=== PATIENT | male | born 1990 | race Caucasian/White ===

== ENCOUNTER 2017-04-15 17:09 | Emergency (ER) | payer OTHER ==
[~2017-04-15] VITALS: Ht 185.4 cm; Wt 71.5 kg
[~2017-04-15 17:09] MED LIST: FLEXERIL10 MG PO; METHADONE10 MG PO; MOTRIN800 MG PO; NAPROSYN500 MG PO
[2017-04-15] MEDS ORDERED: KEFLEX500 MG PO (18:53)
[2017-04-15 19:35] VITALS: BP 124/71
== END 2017-04-15 19:36 | disposition home or self-care (01) ==
LOC: EME 17:09
PROC: 3E0234Z Introduction of Serum, Toxoid and Vaccine into Muscle, Percutaneous Approach (ICD-10-PCS; principal; 2017-04-15)
DX: S41.142A Puncture wound with foreign body of left upper arm, initial encounter (principal); W20.8XXA Other cause of strike by thrown, projected or falling object, initial encounter; Z23 Encounter for immunization
CPT/HCPCS: 73060; 99281; 99283